=== PATIENT | female | born 1995 | race Caucasian/White ===

== ENCOUNTER 2022-04-12 12:54 | Emergency (ER) | payer BC, OTHER ==
[2022-04-12 14:20] LABS: Bilirubin Neg (Negative); Blood, Urine Negative (Negative); Clarity Clear (Clear); Glucose, Urine (Dipstick) Normal (Negative); Ketone, Urine Negative (Negative); Leukocyte 100 (Negative); Nitrite Negative (Negative); Protein, Urine (Dipstick) 15 mg/dl (Neg-Trace); Urobilinogen Normal mg/dL (Less than 2)
[2022-04-12 14:55] LABS: RBC/HPF 0-3 HPF (0-3)
[2022-04-12 14:56] LABS: Bacteria/HPF 1+ HPF (None Seen); Transitional Epithelial 0-3 HPF (None Seen)
== END 2022-04-12 14:35 | disposition home or self-care (01) ==
LOC: CSHERS 12:54
DX: R05.9 Cough, unspecified (principal)
CPT/HCPCS: 71045; 81003; 81015